=== PATIENT | male | born 1945 | race Caucasian/White ===

== ENCOUNTER 2018-02-10 11:15 | Inpatient (IN) | payer OTHER ==
[~2018-02-10] VITALS: Ht 170.2 cm; Wt 90.7 kg
[~2018-02-10 11:15] MED LIST: AMOX1TAB12 PO; CLONAZEPAM1 MG PO; COLACE100 MG PO; DEXILANT60 MG PO; GABAPENTIN800 MG PO; LIPIT PO; PEPCID40 MG PO; PERCOCET 5-3251 EACH PO; REMERON30 M1 PO; XANAX XR2 MG PO; XANAX2 MG PO; ZYRTEC10 M3 PO; [UNRECOGNIZED DRUG - OTHER] PO
[2018-03-29] MEDS ORDERED: RAZADYNE12 MG PO (09:37)
[2018-03-30] MEDS ORDERED: DOCUSATE SODIU100 MG PO (10:01)
[2018-03-30] MEDS ORDERED: XANAX1 MG PO (10:03)
[2018-03-30] MEDS ORDERED: PERCOCET 5-3251 EACH PO (10:03)
== END 2018-03-30 13:42 | disposition home or self-care (01) | DRG 454 ==
LOC: SURG 03-29 05:15 → O/R 03-29 05:15 → RECOVERY 03-29 10:00 → SURG 03-29 12:10
PROVIDERS: Orthopaedic Surgery Orthopaedic Surgery of the Spine
PROC: 0RG2071 Fusion of 2 or more Cervical Vertebral Joints with Autologous Tissue Substitute, Posterior Approach, Posterior Column, Open Approach (ICD-10-PCS; 2018-03-29)
PROC: 0RT30ZZ Resection of Cervical Vertebral Disc, Open Approach (ICD-10-PCS; 2018-03-29)
PROC: 07DS3ZZ Extraction of Vertebral Bone Marrow, Percutaneous Approach (ICD-10-PCS; 2018-03-29)
PROC: 0RG20A0 Fusion of 2 or more Cervical Vertebral Joints with Interbody Fusion Device, Anterior Approach, Anterior Column, Open Approach (ICD-10-PCS; principal; 2018-03-29 10:00)
DX: M47.12 Other spondylosis with myelopathy, cervical region (principal); M50.022 Cervical disc disorder at C5-C6 level with myelopathy; I10 Essential (primary) hypertension

== ENCOUNTER 2020-10-16 08:45 | Inpatient (IN) | payer OTHER ==
[~2020-10-16] VITALS: Ht 170.2 cm; Wt 81.6 kg
[~2020-10-16 08:45] MED LIST changes: +DOCUSATE SODIU100 MG PO; +RAZADYNE12 MG PO; +XANAX1 MG PO
[2020-10-16] MEDS ORDERED: TAMS0.4C PO (13:16)
[2020-10-16] MEDS ORDERED: CRESTOR20 MG PO (13:17)
[2020-10-16] MEDS ORDERED: GLUCOPHAGE XR500 MG PO (13:18)
[2020-10-16] MEDS ORDERED: ZANTAC PO (13:19)
[2020-10-16] MEDS ORDERED: [UNRECOGNIZED DRUG - OTHER] PO (13:19)
[2020-10-16] MEDS ORDERED: ALENDRONATE SOD35 MG PO (13:19)
[2020-10-16] MEDS ORDERED: PERCOCET PO (13:20)
[2020-10-16] MEDS ORDERED: RESTORIL PO (13:21)
[2020-10-22] MEDS ORDERED: RESTORIL30 MG (13:32)
[2020-10-22] MEDS ORDERED: BUPROPION XL150 MG (13:32)
[2020-10-22] MEDS ORDERED: TRINTELLIX10 MG (13:32)
[2020-10-22] MEDS ORDERED: UROXATRAL10 MG (13:32)
[2020-10-22] MEDS ORDERED: GALANTAMINE HBR24 MG (13:33)
[2020-10-22] MEDS ORDERED: RESTASIS1 EACH (13:33)
[2020-10-22] MEDS ORDERED: FLUOROMETHOLONE5 ML (13:33)
[2020-10-22] MEDS ORDERED: MEMANTINE HCL10 MG (13:33)
[2020-10-22] MEDS ORDERED: PANTOPRAZOLE SO40 MG (13:33)
[2020-10-22] MEDS ORDERED: CANDESARTAN CILE4 MG (13:33)
[2020-10-22] MEDS ORDERED: ZANTAC25 MG/1 ML (13:39)
[2020-10-22] MEDS ORDERED: COLACE100 MG PO (13:55)
[2020-10-22] MEDS ORDERED: MEDROLPACK PO (13:55)
[2020-10-22] MEDS ORDERED: DIAZEPAM5 MG PO (13:55)
[2020-10-22] MEDS ORDERED: NEURONTIN800 MG PO (13:55)
[2020-10-22] MEDS ORDERED: PERCOCET 5-3251 EACH PO (13:55)
[2020-10-22] MEDS ORDERED: BACTRIM DS TAB1 EACH PO (13:55)
== END 2020-10-23 12:53 | disposition home or self-care (01) | DRG 455 ==
LOC: EDSTATUS 08:45 → ADM 08:45 → O/R 10-22 05:47 → SURH 10-22 08:45
PROVIDERS: ADMIT Orthopaedic Surgery Orthopaedic Surgery of the Spine; ATTEND Orthopaedic Surgery Orthopaedic Surgery of the Spine
PROC: 0SG33J1 Fusion of Lumbosacral Joint with Synthetic Substitute, Posterior Approach, Posterior Column, Percutaneous Approach (ICD-10-PCS; 2020-10-22)
PROC: 0QP005Z Removal of External Fixation Device from Lumbar Vertebra, Open Approach (ICD-10-PCS; 2020-10-22)
PROC: 07DR3ZZ Extraction of Iliac Bone Marrow, Percutaneous Approach (ICD-10-PCS; 2020-10-22)
PROC: 0SG33AJ Fusion of Lumbosacral Joint with Interbody Fusion Device, Posterior Approach, Anterior Column, Percutaneous Approach (ICD-10-PCS; principal; 2020-10-22 19:45)
DX: M43.17 Spondylolisthesis, lumbosacral region (principal); M48.07 Spinal stenosis, lumbosacral region; M54.17 Radiculopathy, lumbosacral region; I10 Essential (primary) hypertension